=== PATIENT | male | born 1990 | race Asian ===

== ENCOUNTER 2020-06-01 20:32 | Inpatient (IN) | payer BC, OTHER ==
[~2020-06-01] VITALS: Ht 185.4 cm; Wt 137.3 kg
--- NOTE | 2020-06-01 20:50 | NUR ---
PT TRANSFERRED FROM [facility] FOR HERNIATED DISK. PT MEDICATE WITH 2 MG DILAUDID CUTTER HAND. PT HERE FOR FURTHER EVALUATION. VSS. PT COMPLAING OF BACK PAIN AND NUMBNESS TO RIGHT LEG. PT RESTING COMFORTABLY. CALL LIGHT IN REACH
[2020-06-01 22:01] LABS: BASOPHILS % (AUTO) 1 % (0-1); EOSINOPHILS % (AUTO) 0 % (1-7); LYMPHOCYTES % (AUTO) 6 % (22-44); MEAN CORPUSCULAR HGB CONC 34.8 g/dL (33.2-36.2); MEAN PLATELET VOLUME 7.9 fL (7.4-10.4); MONOCYTES % (AUTO) 1 % (2-9); NEUTROPHILS % (AUTO) 92 % (42-75); PLATELET COUNT 394 x10^3/uL (130-400); RED CELL DISTRIBUTION WIDTH 13.4 % (9.4-14.8)
--- NOTE | 2020-06-01 22:06 | NUR ---
PT AMBULATED TO THE BATHROOM WITH NO ASSISTANCE. PT MOVING WITH SLOW BUT STEADY GAIT. PT BACK TO ROOM AND HAS NO OTHER NEEDS. CALL LIGHT IN REACH
[2020-06-01 22:12] LABS: ANION GAP 10 mmol/L (5-15); CALCIUM 8.7 mg/dL (8.5-10.1); CHLORIDE 109 mmol/L (98-107); CREATININE 0.91 mg/dL (0.7-1.3)
[2020-06-01 22:35] LABS: MD SCAN
--- NOTE | 2020-06-01 23:20 | NUR ---
PT RESTING WITH NO NEEDS AT THIS TIME. REPORT CALLED. PT UPDATED ON POC.
[2020-06-01] MEDS ORDERED: HYDROmorphone 1 MG/ML, 1ML INJ IVPush PRN (23:30)
[2020-06-02] VITALS (8 sets, daily range): BP systolic 149–179; BP diastolic 92–116
[2020-06-02] MEDS ORDERED: BISACODYL 10 MG SUPP PR PRN
[2020-06-02] MEDS ORDERED: METHOCARBAMOL 500 MG TABLET PO PRN
[2020-06-02] MEDS ORDERED: ONDANSETRON ODT 4 MG PO PRN
[2020-06-02] MEDS ORDERED: POLYETHYLENE GLYCOL 17 GM PACKET PO PRN
[2020-06-02] MEDS: DEXAMETHASONE 4 MG TABLET PO SCH ×4 (00:10→22:00)
[2020-06-02] MEDS: SODIUM CHLORIDE FLUSH 10ML SYR IVF SCH ×3 (00:10→22:36)
[2020-06-02] MEDS: morphine SULFATE 10 MG/ML, 1ML IVPush PRN ×4 (00:43→13:59)
[2020-06-02 05:24] LABS: BASOPHILS % (AUTO) 0 % (0-1); EOSINOPHILS % (AUTO) 0 % (1-7); LYMPHOCYTES % (AUTO) 9 % (22-44); MEAN CORPUSCULAR HEMOGLOBIN 30.9 pg (27.5-34.5); MEAN CORPUSCULAR HGB CONC 35.1 g/dL (33.2-36.2); MEAN PLATELET VOLUME 7.9 fL (7.4-10.4); MONOCYTES % (AUTO) 2 % (2-9); NEUTROPHILS % (AUTO) 89 % (42-75); PLATELET COUNT 375 x10^3/uL (130-400); RED BLOOD COUNT 4.89 x10^6/uL (4.38-5.82); RED CELL DISTRIBUTION WIDTH 13.3 % (9.4-14.8)
[2020-06-02 05:26] LABS: MD NO
[2020-06-02] MEDS: LISINOPRIL 10 MG TABLET PO SCH (08:22)
[2020-06-02] MEDS: SENNA/DOCUSATE TABLET PO SCH (08:22)
[2020-06-02] MEDS ORDERED: hydrALAzine 20 MG/ML, 1ML IV PRN ×2 (10:30→17:00)
[2020-06-02] MEDS: OXYcodone IR 5MG TABLET PO PRN (11:25)
[2020-06-02] MEDS: POTASSIUM CHLORIDE 20 MEQ in SODIUM CHLORIDE 0.45% 1,000 ML IV SCH ×2 (11:27→22:00)
[2020-06-02] MEDS ORDERED: BACITRACIN 50,000 UNIT ONE (14:47)
[2020-06-02] MEDS ORDERED: EPINEPHRINE 1 MG/ML, 1ML ONE (14:47)
[2020-06-02] MEDS ORDERED: VANCOMYCIN 1,000 MG ONE (14:47)
[2020-06-02] MEDS ORDERED: THROMBIN 20,000 UNIT VIAL TP ONE (14:47)
[2020-06-02] MEDS ORDERED: BUPIVACAINE/PF 0.5% ONE (14:47)
[2020-06-02] MEDS ORDERED: MIDAZOLAM 1 MG/ML, 2ML ONE (16:45)
[2020-06-02] MEDS ORDERED: FENTANYL PF 250 MCG/5ML ONE (16:45)
[2020-06-02] MEDS ORDERED: PROPOFOL 50 ML ONE ×3 (16:46→18:51)
[2020-06-02] MEDS ORDERED: DIPHENHYDRAMINE 50 MG/ML, 1ML IVPush PRN (17:00)
[2020-06-02] MEDS ORDERED: LABETALOL 5MG/ML, 20ML IV PRN (17:00)
[2020-06-02] MEDS ORDERED: HALOPERIDOL 5 MG/ML IV PRN (17:00)
[2020-06-02] MEDS ORDERED: PROMETHAZINE 25 MG/ML, 1ML IVPush PRN (17:00)
[2020-06-02] MEDS ORDERED: HYDROmorphone 1 MG/ML, 1ML INJ IVPush PRN (17:00)
[2020-06-02] MEDS ORDERED: MEPERIDINE/PF 25MG/0.5ML IVPush PRN (17:00)
[2020-06-02] MEDS ORDERED: OXYcodone 5 MG/5 ML ORAL.SOL UDC PO PRN (17:00)
[2020-06-02] MEDS ORDERED: FENTANYL PF 100 MCG/2ML IV PRN (17:00)
[2020-06-02] MEDS ORDERED: BACITRACIN 50,000 UNIT IM ONE (17:50)
[2020-06-02] MEDS ORDERED: BUPIVACAINE/PF-EPI 0.5% 1:200K INFIL ONE (17:50)
[2020-06-02] MEDS ORDERED: THROMBIN 5,000 UNIT VIAL TP ONE (17:50)
[2020-06-02] MEDS ORDERED: VANCOMYCIN 1,000 MG IVPB ONE (17:50)
[2020-06-02] MEDS ORDERED: FENTANYL PF 100 MCG/2ML ONE ×3 (18:27→20:38)
[2020-06-02] MEDS ORDERED: ROCURONIUM 10MG/ML,5ML ONE (19:11)
[2020-06-02] MEDS ORDERED: ONDANSETRON 2MG/ML, 2ML ONE (19:11)
[2020-06-02] MEDS ORDERED: GLYCOPYRROLATE 0.2MG/1ML, 5ML ONE (19:11)
[2020-06-02] MEDS ORDERED: PROPOFOL 10 MG/ML, 20ML ONE (19:11)
[2020-06-02] MEDS ORDERED: DEXAMETHASONE 4 MG/ML, 1ML ONE (19:11)
[2020-06-02] MEDS ORDERED: SUCCINYLCHOLINE 20 MG/ML, 10ML ONE (19:11)
[2020-06-02] MEDS ORDERED: CEFAZOLIN 1,000 MG ONE (19:11)
[2020-06-02] MEDS ORDERED: NEOSTIGMINE 1 MG/ML, 10ML ONE (19:11)
[2020-06-02] MEDS ORDERED: OXYcodone 5 MG/5 ML ORAL.SOL UDC ONE (20:17)
[2020-06-03 00:09] VITALS: BP 144/72
[2020-06-03] MEDS: ACETAMINOPHEN 325 MG TABLET PO PRN ×2 (00:55→08:10)
[2020-06-03] MEDS: OXYcodone IR 5MG TABLET PO PRN ×2 (00:55→08:10)
[2020-06-03 04:34] VITALS: BP 134/82
[2020-06-03] MEDS: DEXAMETHASONE 4 MG TABLET PO SCH ×2 (04:59→09:59)
[2020-06-03 05:47] LABS: MEAN CORPUSCULAR HEMOGLOBIN 30.7 pg (27.5-34.5); MEAN CORPUSCULAR HGB CONC 34.5 g/dL (33.2-36.2); MEAN PLATELET VOLUME 8.1 fL (7.4-10.4); PLATELET COUNT 428 x10^3/uL (130-400); RED BLOOD COUNT 4.58 x10^6/uL (4.38-5.82); RED CELL DISTRIBUTION WIDTH 13.5 % (9.4-14.8)
[2020-06-03 05:57] LABS: CHLORIDE 109 mmol/L (98-107)
[2020-06-03 06:04] LABS: ALANINE AMINOTRANSFERASE 26 U/L (12-78); ALBUMIN 3.6 g/dL (3.4-5.0); ALKALINE PHOSPHATASE 64 U/L (45-117); ANION GAP 6 mmol/L (5-15); BILIRUBIN,TOTAL 0.4 mg/dL (0.2-1.0); CALCIUM 9.2 mg/dL (8.5-10.1); CREATININE 1.07 mg/dL (0.7-1.3)
[2020-06-03 06:25] VITALS: BP 156/76
[2020-06-03 06:58] LABS: MD YES
[2020-06-03 07:00] LABS: LYMPH#(MANUAL) 1.86 x10^3/uL (1-3.4); LYMPHS% (MANUAL) 7 % (22-44); MONOS#(MANUAL) 1.06 x10^3/uL (0.3-2.7); MONOS% (MANUAL) 4 % (2-9); SEG#(MANUAL) 23.67 x10^3/uL (1.8-6.8); SEGS% (MANUAL) 89 % (42-75)
[2020-06-03 07:01] LABS: <PLATELET ESTIMATE> INCREASED; <PLT MORPHOLOGY> NORMAL PLT MORPH; <RBC MORPHOLOGY> NORMAL
[2020-06-03] MEDS: LISINOPRIL 10 MG TABLET PO SCH (08:10)
[2020-06-03] MEDS: SENNA/DOCUSATE TABLET PO SCH (08:10)
[2020-06-03] MEDS: SODIUM CHLORIDE FLUSH 10ML SYR IVF SCH (08:23)
[2020-06-03] MEDS ORDERED: SENN-220 PO (08:57)
[2020-06-03] MEDS ORDERED: HYDR-1067 PO (08:57)
== END 2020-06-03 10:30 | disposition home or self-care (01) | DRG 520 ==
LOC: ED 21:35 → EDIP 23:13 → 3N 23:45 → 4NE 06-02 21:18 → DCLOUNGE 06-03 10:24
PROVIDERS: ADMIT Family Medicine; ATTEND Family Medicine
PROC: 4A11X4G Monitoring of Peripheral Nervous Electrical Activity, Intraoperative, External Approach (ICD-10-PCS; 2020-06-02)
PROC: 0SB40ZZ Excision of Lumbosacral Disc, Open Approach (ICD-10-PCS; principal; 2020-06-02 17:00)
DX: M48.061 Spinal stenosis, lumbar region without neurogenic claudication (principal); E66.9 Obesity, unspecified; F17.210 Nicotine dependence, cigarettes, uncomplicated; G89.29 Other chronic pain; I10 Essential (primary) hypertension; K21.9 Gastro-esophageal reflux disease without esophagitis; M51.16 Intervertebral disc disorders with radiculopathy, lumbar region; M51.27 Other intervertebral disc displacement, lumbosacral region; Z80.8 Family history of malignant neoplasm of other organs or systems; Z83.3 Family history of diabetes mellitus; Z68.39 Body mass index [BMI] 39.0-39.9, adult
CPT/HCPCS: 36415; 72100; 76000; 96374; 99285; S0020; 80048; 80053; 85025; 87635; 95938; 95941; G0378; J0171; J0690; J1100; J2250; J2405; J2704; J2710; J3010; J3370; J3480; J0330; J2270